=== PATIENT | male | born 1980 | race Caucasian/White ===

== ENCOUNTER 2022-04-28 08:50 | Emergency (ER) | payer OTHER ==
[~2022-04-28] VITALS: Ht 177.8 cm; Wt 96.3 kg
[2022-04-28] MEDS ORDERED: dexameTHASONE 20MG/5ML VIAL (J1100 PER 1MG) IV ONE (10:25)
[2022-04-28] MEDS ORDERED: NS 1,000 ML IV ONE (10:25)
[2022-04-28 10:27] LABS: BASO % 0.5 % (0.0-1.0); EOS # 0.1 10^3/uL (0.0-0.5); EOS % 1.3 % (0.0-3.0); HEMATOCRIT 42.4 % (42.0-52.0); HEMOGLOBIN 14.9 g/dl (13.5-17.5); LYMPH # 2.4 10^3/uL (1.5-5.0); LYMPH % 27.3 % (24.0-44.0); MEAN CORPUSCULAR HEMOGLOBIN 31.8 pg (27.0-33.0); MEAN CORPUSCULAR HGB CONC 35.1 g/dl (32.0-36.5); MEAN CORPUSCULAR VOLUME 90.4 fl (80.0-96.0); MONO # 0.7 10^3/uL (0.0-0.8); MONO % 8.3 % (2.0-8.0); NEUTROPHILS # 5.4 10^3/uL (1.5-8.5); NEUTROPHILS % 62.4 % (36.0-66.0); PLATELET COUNT, AUTOMATED 218 10^3/uL (150-450); RED BLOOD COUNT 4.69 10^6/uL (4.30-6.10); WHITE BLOOD COUNT 8.7 10^3/uL (4.0-10.0)
[2022-04-28] MEDS ORDERED: ISOVUE-370 76% 100ML VIAL As Ordered ONE (10:33)
[2022-04-28 10:45] LABS: ERYTHROCYTE SEDIMENTATION RATE 8 mm/hr (0-15)
[2022-04-28] MEDS ORDERED: LIDO2SOL17 PO (11:50)
[2022-04-28 11:55] VITALS: BP 128/74
== END 2022-04-28 12:00 | disposition home or self-care (01) ==
LOC: M ED 08:50
DX: J35.1 Hypertrophy of tonsils (principal); J02.9 Acute pharyngitis, unspecified
CPT/HCPCS: 70491; 80047; 85025; 85652; 86140; 87880; 96361; 96374; 99283; J1100; Q9967